=== PATIENT | male | born 1970 | race African-American/Black ===

== ENCOUNTER 2020-01-29 12:16 | Inpatient (IN) | payer BC ==
--- NOTE | 2020-01-29 12:31 | BHS.RME ---
Substance Use & Tx History - Substance Use History Alcohol Substance amount: 1 pint vodka + six pack beers Frequency of use: Daily Substance route: Oral Date of Last Use: 01/29/20 Cocaine- Powder Substance amount: $10 Frequency of use: Less than 3 times per week Substance route: Inhalation (ex: sniffing or snorting) Date of Last Use: 01/24/20 Marijuana/Hashish Substance amount: $5 Frequency of use: Daily Substance route: Smoking Date of Last Use: 01/29/20 Nicotine Substance amount: 1/2 pack Frequency of use: Daily Substance route: Smoking Date of Last Use: 01/29/20 Physical/Psych/Mental Status - Behavior General Behavior: Increased activity (restlessness, agitation) Eye Contact: Normal - Cooperativeness Cooperativeness: Cooperative - Thinking Thought Processes: Tight, Logical, Goal Directed Thought content: Future oriented - Physical Health Problems Is patient presently having any pain?: No Does patient presently have any injuries (include location): No Does patient currently have a fever: No Is patient : No CIWA Nausea/Vomitin-Mild Nausea/No Vomiting Muscle Tremors: 4-Moderate,w/Arms Extend Anxiety: 2 Agitation: 1-Slight > Activity Paroxysmal Sweats: 1-Minimal Palms Moist Orientation: 0-Oriented Tacttile Disturbances: 0-None Auditory Disturbances: 0-None Visual Disturbances: 0-None Headache: 0-None Present (still not in full withdrawals due to drink earlier this morning at 6AM) CIWA-Ar Total Score: 9
[2020-01-29 13:05] VITALS: BMI 19.7
--- NOTE | 2020-01-29 13:32 | HP ---
CIWA Score Nausea/Vomitin-Mild Nausea/No Vomiting Muscle Tremors: 4-Moderate,w/Arms Extend Anxiety: 2 Agitation: 1-Slight > Activity Paroxysmal Sweats: 1-Minimal Palms Moist Orientation: 0-Oriented Tacttile Disturbances: 0-None Auditory Disturbances: 0-None Visual Disturbances: 0-None Headache: 0-None Present (still not in full withdrawals due to drink earlier this morning at 6AM) CIWA-Ar Total Score: 9 - Admission Criteria [facility] Guidelines: Admission for Medically Managed Detox: Requires at least one of the followin. CIWA greater than 12 2. Seizures within the past 24 hours 3. Delirium tremens within the past 24 hours 4. Hallucinations within the past 24 hours 5. Acute intervention needed for co occurring medical disorder 6. Acute intervention needed for co occurring psychiatric disorder 7. Severe withdrawal that cannot be handled at a lower level of care (continued vomiting, continued diarrhea, abnormal vital signs) requiring intravenous medication and/or fluids 8. Admitting History and Physical - Admission Chief Complaint: Alcohol detox History of Present Illness: CC: Alcohol detox HPI: Jayson is a 49 year old man with PMH of HIV currently on anti-retrovirals, polysubstance abuse (alcohol, cocaine, marijuana, nicotine), who presents for alcohol detox. He states this is his second time attempting detox; the first time was at [facility] several years ago. He is a poor historian, but reports that his longest period of sobriety is 6 months. CIWA 9 BUT patient meets criteria for comorbid medical condition/homeless. - Substance Use History Alcohol Substance amount: 1 pint vodka + six pack beers Frequency of use: Daily Substance route: Oral Date of Last Use: 01/29/20 Daily eyeopener Cocaine- Powder Substance amount: $10 Frequency of use: Less than 3 times per week Substance route: Inhalation (ex: sniffing or snorting) Date of Last Use: 01/24/20 Marijuana/Hashish Substance amount: $5 Frequency of use: Daily Substance route: Smoking Date of Last Use: 01/29/20 Nicotine Substance amount: 1/2 pack Frequency of use: Daily Substance route: Smoking Date of Last Use: 01/29/20 PMH: HIV positive, diagnosed 1998 PSH: None Psych: None Social: Homeless, lives in [place]f in the [place] Legal: None History Source: Patient Limitations to Obtaining History: No Limitations - Smoking History Smoking history: Current every day smoker Have you smoked in the past 12 months: Yes Aproximately how many cigarettes per day: 10 - Alcohol/Substance Use Hx Alcohol Use: Yes History of Substance Use: reports: Cocaine, Marijuana - Social History Usual Living Arrangement: Yes: Alone, Other (homeless) Admission ROS [facility] Chief Complaint: alcohol detox Allergies/Adverse Reactions: Allergies Allergy/AdvReac Type Severity Reaction Status Date / Time No Known Allergies Allergy Verified 01/29/20 13:13 Exam Limitations: No Limitations - Ebola screening Have you traveled outside of the country in the last 21 days: No Have you had contact with anyone from an Ebola affected area: No Have you been sick,other than usual withdrawal symptoms: No Do you have a fever: No - Review of Systems Constitutional: Unintentional Wgt. Loss EENT: denies: Eye Pain, Ear Pain, Nose Congestion Respiratory: denies: Cough, Shortness of Breath Cardiac: denies: Chest Pain, Edema GI: denies: Constipated, Diarrhea, Nausea, Vomiting : reports: No Symptoms Reported Musculoskeletal: reports: No Symptoms Reported Integumentary: reports: No Symptoms Reported. denies: Rash Neuro: reports: No Symptoms reported. denies: Headache Endocrine: reports: No Symptoms Reported Hematology: denies: Blood Clots Psychiatric: reports: Orientated x3 Patient History - Patient Medical History Hx Asthma: No Hx Chronic Obstructive Pulmonary Disease (COPD): No Hx Cardiac Disorders: No Hx Hypertension: No Hx Seizures: No Hx Diabetes: No Hx Gastrointestinal Disorders: No Hx Genitourinary Disorders: No Hx Sexually Transmitted Disorders: Yes (HIV + since 1998) Hx Renal Disease (ESRD): No Hx Depression: No Hx Suicide Attempt: No Hx Schizophrenia: No - Patient Surgical History Past Surgical History: No Hx Neurologic Surgery: No Hx Cataract Extraction: No Hx Cardiac Surgery: No Hx Lung Surgery: No Hx Breast Surgery: No Hx Breast Biopsy: No Hx Abdominal Surgery: No Hx Appendectomy: No Hx Cholecystectomy: No Hx Genitourinary Surgery: No Hx Orthopedic Surgery: No Anesthesia Reaction: No - PPD History Previous Implant?: No Documented Results: Negative w/o proof - Smoking Cessation Smoking history: Current every day smoker Have you smoked in the past 12 months: Yes Aproximately how many cigarettes per day: 10 Hx Chewing Tobacco Use: No Initiated information on smoking cessation: No - Substances abused Alcohol Substance route: Oral Frequency: Daily Amount used: 1 (6) pack of beer and 1 pint Vodka Age of first use: 20 Date of last use: 01/29/20 Marijuana/Hashish Substance route: Smoking Frequency: Daily Amount used: $5 Age of first use: 20 Date of last use: 01/29/20 Cocaine Substance route: Inhalation Frequency: 3-6 times per week Amount used: $10 Age of first use: 20 Date of last use: 01/22/20 Admission Physical Exam [facility] - Vital Signs Vital Signs: Vital Signs - 24 hr 01/29/20 12:57 Temperature 97.6 F Pulse Rate 68 Respiratory 19 Rate Blood Pressure 157/85 - Physical General Appearance: Yes: Disheveled, Thin HEENTM: Yes: Within Normal Limits, Hearing grossly Normal, Normocephalic Respiratory: Yes: Within Normal Limits, Lungs Clear, No Respiratory Distress, No Accessory Muscle Use Neck: Yes: Within Normal Limits Breast: Yes: Breast Exam Deferred Cardiology: Yes: Regular Rhythm, Regular Rate, S1, S2 Abdominal: Yes: Within Normal Limits, Flat, Soft, Other (mild tenderness to palpation at RUQ) Genitourinary: Yes: Within Normal Limits Back: Yes: Within Normal Limits Musculoskeletal: Yes: full range of Motion, Gait Steady Extremities: Yes: Within Normal Limits, Normal Capillary Refill, Normal Inspection. No: Tremors, Coldness, Cyanosis Neurological: Yes: Within Normal Limits, Alert, Normal Mood/Affect, Normal Response Integumentary: Yes: Within Normal Limits, Normal Color, Dry, Warm - Diagnostic (1) Alcohol withdrawal Current Visit: Yes Status: Acute Qualifiers: Complication of substance-induced condition: uncomplicated Qualified Code(s): F10.230 - Alcohol dependence with withdrawal, uncomplicated (2) Cocaine use disorder Current Visit: Yes Status: Acute (3) Marijuana smoker Current Visit: Yes Status: Chronic (4) Nicotine dependence Current Visit: Yes Status: Chronic (5) HIV positive Current Visit: Yes Status: Chronic Cleared for Admission [facility] - Detox or Rehab [facility] Level of Care: Medically Managed Screened but not Admitted - Documentation of Visit Screened but not Admitted: No Breathalyzer - Breathalyzer Breathalyzer: 0.061 Urine Drug Screen - Test Device Lot number: [id number] Expiration date: 01/13/22 - Control Is test valid?: Yes - Results Drug screen NEGATIVE: No Urine drug screen results: THC-Marijuana, LEONA-Cocaine, MET-Methamphetamine, AMP- Amphetamines Inpatient Rehab Admission - Rehab Decision to Admit Inpatient rehab admission?: No
[2020-01-29] MEDS ORDERED: ACETAMINOPHEN 325 MG TABLET (FP) PO PRN ×2 (13:47)
[2020-01-29] MEDS ORDERED: BISMUTH SUBSALICYLATE 524 MG/30 ML UD PO PRN (13:47)
[2020-01-29] MEDS ORDERED: MAGNESIUM CITRATE 300 ML BOTTLE PO PRN (13:47)
[2020-01-29] MEDS ORDERED: MAG HYDROX/AL HYDROX/SIMETH 30 ML UNIT-DOSE CUP PO PRN (13:47)
[2020-01-29] MEDS ORDERED: chlordiazePOXIDE HCL 25 MG CAPSULE PO PRN ×2 (13:47→14:10)
[2020-01-29] MEDS ORDERED: MAGNESIUM HYDROX 2400MG/30ML ORAL SUSPENSION 30 ML CUP PO PRN (13:47)
[2020-01-29] MEDS ORDERED: MENTHOL/PHENOL 1 EACH UD MM PRN (13:47)
[2020-01-29] MEDS ORDERED: METHOCARBAMOL 500 MG TABLET PO PRN (13:47)
[2020-01-29] MEDS ORDERED: NICOTINE POLACRILEX 2 MG GUM BUC PRN (13:47)
[2020-01-29] MEDS ORDERED: chlordiazePOXIDE HCL 25 MG CAPSULE PO ONE (14:15)
[2020-01-29] MEDS ORDERED: ONDANSETRON *ODT* 4 MG TABLET SL ONE (14:30)
[2020-01-29] MEDS: NICOTINE 14 MG/24 HOURS TOPICAL PATCH TD SCH (14:51)
--- NOTE | 2020-01-29 14:52 | EKG ---
Test Reason : Blood Pressure : / mmHG Vent. Rate : 062 BPM Atrial Rate : 062 BPM P-R Int : 142 ms QRS Dur : 086 ms QT Int : 468 ms P-R-T Axes : 066 043 056 degrees QTc Int : 475 ms NORMAL SINUS RHYTHM VOLTAGE CRITERIA FOR LEFT VENTRICULAR HYPERTROPHY NONSPECIFIC T WAVE ABNORMALITY PROLONGED QT ABNORMAL ECG NO PREVIOUS ECGS AVAILABLE Confirmed by Sebas Ochoa MD ([id number]) on 01/29/2020 2:51:58 PM Referred By: Confirmed By:Sebas Ochoa MD
[2020-01-29] MEDS ORDERED: chlordiazePOXIDE HCL 25 MG CAPSULE PO SCH (17:00)
[2020-01-29 18:00] LABS: HEMATOCRIT 36.5 % (35.4-49); HEMOGLOBIN 12.5 GM/dL (11.7-16.9); MCH 37.2 pg (25.7-33.7); MCHC 34.3 g/dl (32.0-35.9); MEAN CELL VOLUME 108.4 fl (80-96); MEAN PLT VOLUME 9.6 fl (7.5-11.1); PLATELET COUNT 89 K/MM3 (134-434); RBC 3.37 M/mm3 (4.00-5.60); RDW 14.1 % (11.9-15.9); WHITE BLOOD COUNT 3.5 K/mm3 (4.0-10.0)
[2020-01-29 18:04] LABS: ALBUMIN 4.1 g/dl (3.4-5.0); BILIRUBIN,TOTAL 1.7 mg/dL (0.2-1); BLOOD UREA NITROGEN 10.7 mg/dL (7-18); CALCIUM 8.6 mg/dL (8.5-10.1); CREATININE 1.1 mg/dL (0.55-1.3); POTASSIUM 4.2 mmol/L (3.5-5.1); TOT PROT 8.1 g/dl (6.4-8.2)
[2020-01-29] MEDS: chlordiazePOXIDE HCL 25 MG CAPSULE PO SCH ×2 (18:52→22:29)
[2020-01-29] MEDS: MELATONIN 5 MG TABLETS PO SCH (22:29)
[2020-01-29] MEDS: THIAMINE HCL 100 MG TABLET (FP) PO SCH (22:29)
[2020-01-30] MEDS: chlordiazePOXIDE HCL 25 MG CAPSULE PO SCH (05:30)
[2020-01-30] MEDS ORDERED: PATIENT'S OWN MEDICATION (NON-FORMULARY) (Darunavir/Cob/Emtri/Tenof Alaf 1 EACH) PO SCH (10:00)
--- NOTE | 2020-01-30 10:22 | CONSULT ---
[facility] Psychiatric Consult - Data Date of interview: 01/30/20 Admission source: [facility] Identifying data: Patient is a 49 year old single black male, father of four, unemployed, domiciled, and is supported with public assistance. This is patient's first admisson to detox at [facility]. Patient admitted to for alcohol dependence. Substance Abuse History: Smoking Cessation. Smoking history: Current every day smoker. Have you smoked in the past 12 months: Yes. Aproximately how many cigarettes per day: 10. Hx Chewing Tobacco Use: No. Initiated information on smoking cessation: No. - Substances abused. Alcohol. Substance route: Oral. Frequency: Daily. Amount used: 1 (6) pack of beer and 1 pint Vodka. Age of first use: 20. Date of last use: 01/29/20. Marijuana/Hashish. Substance route: Smoking. Frequency: Daily. Amount used: $5. Age of first use: 20. Date of last use: 01/29/20. Cocaine. Substance route: Inhalation. Frequency: 3-6 times per week. Amount used: $10. Age of first use: 20. Date of last use: 01/22/20 Medical History: HIV+ Psychiatric History: Patient denies history of psychiatric hospitalization, outpatient psychiatric care, and suicide attempt. Physical/Sexual Abuse/Trauma History: denies. Mental Status Exam - Mental Status Exam Alert and Oriented to: Time, Place, Person Cognitive Function: Good Patient Appearance: Well Groomed Mood: Hopeful Affect: Mood Congruent Patient Behavior: Appropriate, Cooperative Speech Pattern: Appropriate Voice Loudness: Normal Thought Process: Goal Oriented Hallucinations: Denies Suicidal Ideation: Denies Homicidal Ideation: Denies Insight/Judgement: Poor Sleep: Poorly Appetite: Fair Muscle strength/Tone: Normal Gait/Station: Normal Psychiatric Findings - Problem List ([place] 1, 2,3) (1) Substance-induced sleep disorder Current Visit: Yes Status: Acute (2) Alcohol withdrawal Current Visit: Yes Status: Acute Qualifiers: Complication of substance-induced condition: uncomplicated Qualified Code(s): F10.230 - Alcohol dependence with withdrawal, uncomplicated (3) Cocaine use disorder Current Visit: Yes Status: Acute (4) Marijuana smoker Current Visit: Yes Status: Chronic (5) Nicotine dependence Current Visit: Yes Status: Chronic - Initial Treatment Plan Initial Treatment Plan: Psychoeducation provided. Detoxification in progress. Will order Belsomra 10mg HS PRN. Benefits and side effects discussed. Verbal consent given.
--- NOTE | 2020-01-30 10:24 | PN ---
S CIWA - CIWA Score Nausea/Vomitin-Mild Nausea/No Vomiting Muscle Tremors: 2 Anxiety: 4-Mod. Anxious/Guarded Agitation: 2 Paroxysmal Sweats: No Perspiration Orientation: 0-Oriented Tacttile Disturbances: 1-Very Mild Itch/Numbness Auditory Disturbances: 0-None Visual Disturbances: 2-Mild Sensitivity Headache: 0-None Present CIWA-Ar Total Score: 12 BHS Progress Note (SOAP) Subjective: 49 years old male was admitted on 01/29/20 for alcohol withdrawal sx management treating with librium detox regiment bmi 19.7 ensure 120 ml po tid with meals feels tired prefers to resting in bed limited conversation with staff Objective: 01/30/20 10:26 Vital Signs - 24 hr 01/29/20 01/29/20 01/29/20 12:57 14:35 16:49 Temperature 97.6 F 96.9 F L 97.5 F L Pulse Rate 68 62 61 Respiratory 19 19 18 Rate Blood Pressure 157/85 156/88 141/76 O2 Sat by Pulse 98 98 Oximetry (%) 01/29/20 01/30/20 01/30/20 20:51 06:35 08:50 Temperature 97.5 F L 97.1 F L 97.1 F L Pulse Rate 76 60 63 Respiratory 18 18 20 Rate Blood Pressure 133/74 148/76 108/71 O2 Sat by Pulse 96 98 Oximetry (%) Laboratory Tests 01/29/20 01/29/20 01/29/20 13:00 13:00 13:00 WBC 3.5 L RBC 3.37 L Hgb 12.5 Hct 36.5 MCV 108.4 H MCH 37.2 H MCHC 34.3 RDW 14.1 Plt Count 89 L MPV 9.6 Sodium 139 Potassium 4.2 Chloride 106 Carbon Dioxide 23 Anion Gap 11 BUN 10.7 Creatinine 1.1 Est GFR (CKD-EPI)AfAm 90.24 Est GFR (CKD-EPI)NonAf 77.86 Random Glucose 79 Calcium 8.6 Total Bilirubin 1.7 H AST 110 H ALT 45 Alkaline Phosphatase 97 Total Protein 8.1 Albumin 4.1 Syphilis Serology Non-reactive COVID-19 ([facility]) 01/29/20 14:50 WBC RBC Hgb Hct MCV MCH MCHC RDW Plt Count MPV Sodium Potassium Chloride Carbon Dioxide Anion Gap BUN Creatinine Est GFR (CKD-EPI)AfAm Est GFR (CKD-EPI)NonAf Random Glucose Calcium Total Bilirubin AST ALT Alkaline Phosphatase Total Protein Albumin Syphilis Serology COVID-19 ([facility]) Not detected ast elevation discontinue tylenal discontinue librium begin ativan for alcohol withdrawal 01/30/20 10:30 Assessment: 01/30/20 10:30 alcohol withdrawal Plan: ativan regiment
[2020-01-30] MEDS: DARUNAVIR/COB/EMTRI/TENOF (SYMTUZA) TABLET (NF) PO SCH (10:30)
[2020-01-30] MEDS: PRENATAL VITAMINS W/ FOLIC ACID TABLET (FP) PO SCH (10:30)
[2020-01-30] MEDS: NICOTINE 14 MG/24 HOURS TOPICAL PATCH TD SCH (10:30)
[2020-01-30] MEDS: LORazepam 1 MG TABLET PO PRN (11:02)
[2020-01-30] MEDS: LORazepam 2 MG TABLET PO SCH ×2 (17:44→22:23)
[2020-01-30] MEDS: THIAMINE HCL 100 MG TABLET (FP) PO SCH (22:23)
[2020-01-30] MEDS: MELATONIN 5 MG TABLETS PO SCH (22:23)
[2020-01-30] MEDS: SUVOREXANT 10 MG TABLET PO PRN (22:25)
[2020-01-31] MEDS ORDERED: chlordiazePOXIDE HCL 25 MG CAPSULE PO SCH ×2 (05:00)
[2020-01-31] MEDS: LORazepam 2 MG TABLET PO SCH ×4 (05:36→22:15)
[2020-01-31] MEDS: DARUNAVIR/COB/EMTRI/TENOF (SYMTUZA) TABLET (NF) PO SCH (11:02)
[2020-01-31] MEDS: PRENATAL VITAMINS W/ FOLIC ACID TABLET (FP) PO SCH (11:02)
[2020-01-31] MEDS: NICOTINE 14 MG/24 HOURS TOPICAL PATCH TD SCH (11:02)
[2020-01-31] MEDS: IBUPROFEN 400 MG TABLET (FP) PO PRN ×2 (11:05→17:07)
--- NOTE | 2020-01-31 14:04 | PN ---
S CIWA - CIWA Score Nausea/Vomitin-Mild Nausea/No Vomiting Muscle Tremors: 2 Anxiety: 2 Agitation: 2 Paroxysmal Sweats: No Perspiration Orientation: 0-Oriented Tacttile Disturbances: 1-Very Mild Itch/Numbness Auditory Disturbances: 0-None Visual Disturbances: 0-None Headache: 1-Very Mild CIWA-Ar Total Score: 9 S Progress Note (SOAP) Subjective: alert,irritable,anxious,interrupted sleep,tremor,aching pain body Objective: 01/31/20 16:27 Laboratory Last Values WBC 3.5 K/mm3 (4.0-10.0) L 01/29/20 13:00 RBC 3.37 M/mm3 (4.00-5.60) L 01/29/20 13:00 Hgb 12.5 GM/dL (11.7-16.9) 01/29/20 13:00 Hct 36.5 % (35.4-49) 01/29/20 13:00 MCV 108.4 fl (80-96) H 01/29/20 13:00 MCH 37.2 pg (25.7-33.7) H 01/29/20 13:00 MCHC 34.3 g/dl (32.0-35.9) 01/29/20 13:00 RDW 14.1 % (11.9-15.9) 01/29/20 13:00 Plt Count 89 K/MM3 (134-434) L 01/29/20 13:00 MPV 9.6 fl (7.5-11.1) 01/29/20 13:00 Sodium 139 mmol/L (136-145) 01/29/20 13:00 Potassium 4.2 mmol/L (3.5-5.1) 01/29/20 13:00 Chloride 106 mmol/L (98-107) 01/29/20 13:00 Carbon Dioxide 23 mmol/L (21-32) 01/29/20 13:00 Anion Gap 11 MMOL/L (8-16) 01/29/20 13:00 BUN 10.7 mg/dL (7-18) 01/29/20 13:00 Creatinine 1.1 mg/dL (0.55-1.3) 01/29/20 13:00 Est GFR (CKD-EPI)AfAm 90.24 01/29/20 13:00 Est GFR (CKD-EPI)NonAf 77.86 01/29/20 13:00 Random Glucose 79 mg/dL (74-106) 01/29/20 13:00 Calcium 8.6 mg/dL (8.5-10.1) 01/29/20 13:00 Total Bilirubin 1.7 mg/dL (0.2-1) H 01/29/20 13:00 AST 110 U/L (15-37) H 01/29/20 13:00 ALT 45 U/L (13-61) 01/29/20 13:00 Alkaline Phosphatase 97 U/L (45-117) 01/29/20 13:00 Total Protein 8.1 g/dl (6.4-8.2) 01/29/20 13:00 Albumin 4.1 g/dl (3.4-5.0) 01/29/20 13:00 Syphilis Serology Non-reactive (NONREACTIVE) 01/29/20 13:00 COVID-19 ([facility]) Not detected (Not Detected) 01/29/20 14:50 Assessment: 01/31/20 16:28 withdrawal symptom Plan: continue detox ativan regimen,fluid
[2020-01-31] MEDS: THIAMINE HCL 100 MG TABLET (FP) PO SCH (22:15)
[2020-01-31] MEDS: MELATONIN 5 MG TABLETS PO SCH (22:15)
[2020-01-31] MEDS: SUVOREXANT 10 MG TABLET PO PRN (22:16)
[2020-02-01] MEDS ORDERED: chlordiazePOXIDE HCL 10 MG CAPSULE PO PRN ×2
[2020-02-01] MEDS: LORazepam 1 MG TABLET PO PRN (03:14)
[2020-02-01] MEDS ORDERED: LORazepam 0.5 MG TABLET ONE ×4 (04:31→21:08)
[2020-02-01] MEDS ORDERED: chlordiazePOXIDE HCL 10 MG CAPSULE PO SCH ×2 (05:00)
[2020-02-01] MEDS: LORazepam 1 MG TABLET PO SCH ×4 (05:54→22:25)
[2020-02-01] MEDS: IBUPROFEN 400 MG TABLET (FP) PO PRN (05:58)
--- NOTE | 2020-02-01 10:07 | PN ---
S CIWA - CIWA Score Nausea/Vomitin-No Nausea/No Vomiting Muscle Tremors: None Anxiety: 3 Agitation: 1-Slight > Activity Paroxysmal Sweats: 3 Orientation: 0-Oriented Tacttile Disturbances: 0-None Auditory Disturbances: 0-None Visual Disturbances: 0-None Headache: 1-Very Mild CIWA-Ar Total Score: 8 BHS Progress Note (SOAP) Subjective: c/o anxiety, sweats, headache, and irritability. Objective: 02/01/20 10:06 Vital Signs 02/01/20 02/01/20 06:37 09:57 Temperature 97.2 F L 98.0 F Pulse Rate 60 68 Respiratory 16 18 Rate Blood Pressure 133/79 123/82 O2 Sat by Pulse 99 98 Oximetry (%) Assessment: 02/01/20 10:06 AOX3, in no acute respiratory distress. Full ROM, ambulating in the unit. Withdrawal symptoms. Plan: continue detox.
[2020-02-01] MEDS: DARUNAVIR/COB/EMTRI/TENOF (SYMTUZA) TABLET (NF) PO SCH (10:58)
[2020-02-01] MEDS: PRENATAL VITAMINS W/ FOLIC ACID TABLET (FP) PO SCH (10:59)
[2020-02-01] MEDS: NICOTINE 14 MG/24 HOURS TOPICAL PATCH TD SCH (10:59)
[2020-02-01] MEDS: MELATONIN 5 MG TABLETS PO SCH (22:25)
[2020-02-01] MEDS: THIAMINE HCL 100 MG TABLET (FP) PO SCH (22:25)
[2020-02-01] MEDS: SUVOREXANT 10 MG TABLET PO PRN (22:25)
[2020-02-02] MEDS ORDERED: LORazepam 0.5 MG TABLET PO PRN
[2020-02-02] MEDS: LORazepam 0.5 MG TABLET PO SCH ×4 (04:50→22:27)
[2020-02-02] MEDS: IBUPROFEN 400 MG TABLET (FP) PO PRN (04:50)
[2020-02-02] MEDS ORDERED: chlordiazePOXIDE HCL 10 MG CAPSULE PO SCH ×2 (05:00)
[2020-02-02] MEDS: DARUNAVIR/COB/EMTRI/TENOF (SYMTUZA) TABLET (NF) PO SCH (10:23)
[2020-02-02] MEDS: PRENATAL VITAMINS W/ FOLIC ACID TABLET (FP) PO SCH (10:23)
[2020-02-02] MEDS: NICOTINE 14 MG/24 HOURS TOPICAL PATCH TD SCH (10:43)
--- NOTE | 2020-02-02 10:54 | PN ---
S CIWA - CIWA Score Nausea/Vomitin-No Nausea/No Vomiting Muscle Tremors: 2 Anxiety: 1-Mildly Anxious Agitation: 1-Slight > Activity Paroxysmal Sweats: 1-Minimal Palms Moist Orientation: 0-Oriented Tacttile Disturbances: 0-None Auditory Disturbances: 0-None Visual Disturbances: 1-Very Mild Sensitivity Headache: 0-None Present CIWA-Ar Total Score: 6 BHS Progress Note (SOAP) Subjective: 49 years old male was admitted on 01/29/20 for alcohol withdrawal sx management treating with ativan detox regiment feels better today discussing aftercare with staff mr suarez agrees to go to [facility] for alcohol abuse treatment Objective: 02/02/20 10:55 Vital Signs - 24 hr 02/01/20 02/01/20 02/01/20 14:25 16:44 20:44 Temperature 97.8 F 97.1 F L 97.1 F L Pulse Rate 52 L 64 67 Respiratory 17 18 18 Rate Blood Pressure 100/66 147/86 146/95 O2 Sat by Pulse 99 99 Oximetry (%) 02/02/20 02/02/20 04:45 08:46 Temperature 97.3 F L 97.3 F L Pulse Rate 60 66 Respiratory 16 18 Rate Blood Pressure 144/88 130/80 O2 Sat by Pulse 100 Oximetry (%) Laboratory Tests 01/29/20 01/29/20 01/29/20 13:00 13:00 13:00 WBC 3.5 L RBC 3.37 L Hgb 12.5 Hct 36.5 MCV 108.4 H MCH 37.2 H MCHC 34.3 RDW 14.1 Plt Count 89 L MPV 9.6 Sodium 139 Potassium 4.2 Chloride 106 Carbon Dioxide 23 Anion Gap 11 BUN 10.7 Creatinine 1.1 Est GFR (CKD-EPI)AfAm 90.24 Est GFR (CKD-EPI)NonAf 77.86 Random Glucose 79 Calcium 8.6 Total Bilirubin 1.7 H AST 110 H ALT 45 Alkaline Phosphatase 97 Total Protein 8.1 Albumin 4.1 Syphilis Serology Non-reactive COVID-19 ([place]) 01/29/20 14:50 WBC RBC Hgb Hct MCV MCH MCHC RDW Plt Count MPV Sodium Potassium Chloride Carbon Dioxide Anion Gap BUN Creatinine Est GFR (CKD-EPI)AfAm Est GFR (CKD-EPI)NonAf Random Glucose Calcium Total Bilirubin AST ALT Alkaline Phosphatase Total Protein Albumin Syphilis Serology COVID-19 ([place]) Not detected 02/02/20 10:55 lab noted Assessment: 02/02/20 10:55 alcohol withdrawal Plan: ativan regiment
[2020-02-02] MEDS ORDERED: SUVOREXANT 10 MG TABLET PO PRN (22:00)
[2020-02-02] MEDS: THIAMINE HCL 100 MG TABLET (FP) PO SCH (22:27)
[2020-02-02] MEDS: MELATONIN 5 MG TABLETS PO SCH (22:27)
[2020-02-02 23:25] VITALS: TEMP 97.1
[2020-02-03] MEDS ORDERED: chlordiazePOXIDE HCL 10 MG CAPSULE PO ONE ×2 (05:00)
[2020-02-03] MEDS ORDERED: LORazepam 0.5 MG TABLET PO ONE (05:00)
[2020-02-03 06:46] VITALS: BP 131/84; PULSE 58
--- NOTE | 2020-02-03 09:15 | DS ---
[facility] Detox Discharge Summary Admission Date: 01/29/20 Discharge Date: 02/03/20 - History Present History: Alcohol Dependence Additional Comments: 49 years old male was admitted on 01/29/20 for alcohol withdrawal sx management treated with ativan detox regiment seen by psychiatrist era castillo mr suarez has completed the ativan regiment and is tolerated well General Appearance: Yes: good hygiene, Thin HEENTM: Yes: Within Normal Limits, Hearing grossly Normal, Normocephalic Respiratory: Yes: Within Normal Limits, Lungs Clear, No Respiratory Distress, No Accessory Muscle Use Neck: Yes: Within Normal Limits Breast: Yes: Breast Exam Deferred Cardiology: Yes: Regular Rhythm, Regular Rate, S1, S2 Abdominal: Yes: Within Normal Limits, Flat, Soft, Other (mild tenderness to palpation at RUQ) Genitourinary: Yes: Within Normal Limits Back: Yes: Within Normal Limits Musculoskeletal: Yes: full range of Motion, Gait Steady Extremities: Yes: Within Normal Limits, Normal Capillary Refill, Normal Inspection. No: Tremors, Coldness, Cyanosis Neurological: Yes: Within Normal Limits, Alert, Normal Mood/Affect, Normal Response Integumentary: Yes: Within Normal Limits, Normal Color, Dry, Warm Pertinent Past History: time for discharge 35 minutes - Physical Exam Results Vital Signs: Vital Signs Temperature 97.1 F L 02/03/20 05:29 Pulse Rate 58 L 02/03/20 05:29 Respiratory Rate 20 02/03/20 05:29 Blood Pressure 131/84 02/03/20 05:29 O2 Sat by Pulse Oximetry (%) 100 02/03/20 05:29 Pertinent Admission Physical Exam Findings: alcohol withdrawal Vital Signs - 24 hr 02/02/20 02/02/20 02/02/20 12:50 16:27 20:16 Temperature 97.5 F L 96.9 F L 97.1 F L Pulse Rate 81 62 61 Respiratory 18 18 18 Rate Blood Pressure 120/69 142/92 139/82 O2 Sat by Pulse 95 97 Oximetry (%) 02/03/20 05:29 Temperature 97.1 F L Pulse Rate 58 L Respiratory 20 Rate Blood Pressure 131/84 O2 Sat by Pulse 100 Oximetry (%) Laboratory Tests 01/29/20 01/29/20 01/29/20 13:00 13:00 13:00 WBC 3.5 L RBC 3.37 L Hgb 12.5 Hct 36.5 MCV 108.4 H MCH 37.2 H MCHC 34.3 RDW 14.1 Plt Count 89 L MPV 9.6 Sodium 139 Potassium 4.2 Chloride 106 Carbon Dioxide 23 Anion Gap 11 BUN 10.7 Creatinine 1.1 Est GFR (CKD-EPI)AfAm 90.24 Est GFR (CKD-EPI)NonAf 77.86 Random Glucose 79 Calcium 8.6 Total Bilirubin 1.7 H AST 110 H ALT 45 Alkaline Phosphatase 97 Total Protein 8.1 Albumin 4.1 Syphilis Serology Non-reactive COVID-19 ([facility]) 01/29/20 14:50 WBC RBC Hgb Hct MCV MCH MCHC RDW Plt Count MPV Sodium Potassium Chloride Carbon Dioxide Anion Gap BUN Creatinine Est GFR (CKD-EPI)AfAm Est GFR (CKD-EPI)NonAf Random Glucose Calcium Total Bilirubin AST ALT Alkaline Phosphatase Total Protein Albumin Syphilis Serology COVID-19 ([place]) Not detected lab noted - Treatment Hospital Course: Detox Protocol Followed, Detoxed Safely, Responded well, Discharged Condition Good, Rehab Referral Accepted Patient has Accepted a Rehab Referral to: [facility] - Medication Discharge Medications: Ambulatory Orders Darunavir/Cob/Emtri/Tenof Alaf [Symtuza [phone] mg Tab] 1 each PO DAILY 01/29/20 - Diagnosis (1) Substance induced mood disorder Status: Suspected (2) Alcohol withdrawal Status: Acute Qualifiers: Complication of substance-induced condition: uncomplicated Qualified Code(s): F10.230 - Alcohol dependence with withdrawal, uncomplicated (3) HIV positive Status: Chronic (4) Nicotine dependence Status: Acute Qualifiers: Nicotine product type: cigarettes Substance use status: in withdrawal Qualified Code(s): F17.213 - Nicotine dependence, cigarettes, with withdrawal - AMA Did Patient Leave Against Medical Advice: No CIWA Score - CIWA Score Nausea/Vomitin-No Nausea/No Vomiting Muscle Tremors: 2 Anxiety: 1-Mildly Anxious Agitation: 0-Normal Activity Paroxysmal Sweats: No Perspiration Orientation: 0-Oriented Tacttile Disturbances: 0-None Auditory Disturbances: 0-None Visual Disturbances: 0-None Headache: 0-None Present CIWA-Ar Total Score: 3
== END 2020-02-03 09:20 | disposition home or self-care (01) | DRG 774 ==
LOC: YASAS 12:16 → Y3N 13:15
PROVIDERS: ADMIT Allergy & Immunology; ATTEND Allergy & Immunology
PROC: HZ2ZZZZ Detoxification Services for Substance Abuse Treatment (ICD-10-PCS; principal; 2020-01-29)
DX: F10.230 Alcohol dependence with withdrawal, uncomplicated (principal); F14.10 Cocaine abuse, uncomplicated; F12.20 Cannabis dependence, uncomplicated; F17.210 Nicotine dependence, cigarettes, uncomplicated; F19.282 Other psychoactive substance dependence with psychoactive substance-induced sleep disorder; F19.24 Other psychoactive substance dependence with psychoactive substance-induced mood disorder; Z21 Asymptomatic human immunodeficiency virus [HIV] infection status; Z56.0 Unemployment, unspecified; Z59.0 Homelessness
CPT/HCPCS: 36415; 80053; 85027; 86780; 93005; 93010; U0003

== ENCOUNTER 2020-05-20 12:01 | Inpatient (IN) | payer BC ==
[2020-05-20 13:39] VITALS: BMI 21.2
[2020-05-20] MEDS ORDERED: BISMUTH SUBSALICYLATE 262 MG/15 ML BTL PO PRN (14:44)
[2020-05-20] MEDS ORDERED: IBUPROFEN 400 MG TABLET (FP) PO PRN (14:44)
[2020-05-20] MEDS ORDERED: MAGNESIUM CITRATE 300 ML BOTTLE PO PRN (14:44)
[2020-05-20] MEDS ORDERED: MAG HYDROX/AL HYDROX/SIMETH 30 ML UNIT-DOSE CUP PO PRN (14:44)
[2020-05-20] MEDS ORDERED: ACETAMINOPHEN 325 MG TABLET (FP) PO PRN ×2 (14:44)
[2020-05-20] MEDS ORDERED: ONDANSETRON *ODT* 4 MG TABLET SL PRN (14:44)
[2020-05-20] MEDS ORDERED: MENTHOL/PHENOL 1 EACH UD MM PRN (14:44)
[2020-05-20] MEDS ORDERED: MAGNESIUM HYDROX 2400MG/30ML ORAL SUSPENSION 30 ML CUP PO PRN (14:44)
[2020-05-20] MEDS ORDERED: NICOTINE POLACRILEX 2 MG GUM BUC PRN (14:44)
[2020-05-20] MEDS ORDERED: LORazepam 1 MG TABLET PO PRN (14:44)
[2020-05-20] MEDS: METHOCARBAMOL 500 MG TABLET PO PRN (15:16)
[2020-05-20] MEDS: NICOTINE 14 MG/24 HOURS TOPICAL PATCH TD SCH (15:17)
[2020-05-20] MEDS: LORazepam 2 MG TABLET PO SCH ×2 (17:39→22:11)
[2020-05-20] MEDS: hydrOXYzine PAMOATE 25 MG CAPSULE (FP) PO SCH ×2 (17:40→22:11)
[2020-05-20 18:03] LABS: HEMATOCRIT 39.9 % (35.4-49); HEMOGLOBIN 13.5 GM/dL (11.7-16.9); MCH 35.8 pg (25.7-33.7); MCHC 33.8 g/dl (32.0-35.9); MEAN CELL VOLUME 105.9 fl (80-96); MEAN PLT VOLUME 9.1 fl (7.5-11.1); PLATELET COUNT 171 K/MM3 (134-434); RBC 3.76 M/mm3 (4.00-5.60); RDW 15.4 % (11.9-15.9); WHITE BLOOD COUNT 5.1 K/mm3 (4.0-10.0)
[2020-05-20 18:04] LABS: CALCIUM 9.5 mg/dL (8.5-10.1)
[2020-05-20 18:05] LABS: ALBUMIN 3.8 g/dl (3.4-5.0); BLOOD UREA NITROGEN 13.6 mg/dL (7-18)
[2020-05-20 18:08] LABS: CREATININE 1.2 mg/dL (0.55-1.3)
[2020-05-20 18:10] LABS: BILIRUBIN,TOTAL 0.4 mg/dL (0.2-1); TOT PROT 8.6 g/dl (6.4-8.2)
[2020-05-20] MEDS: THIAMINE HCL 100 MG TABLET (FP) PO SCH (22:11)
[2020-05-20] MEDS: MELATONIN 5 MG TABLETS PO SCH (22:11)
[2020-05-21] MEDS: hydrOXYzine PAMOATE 25 MG CAPSULE (FP) PO SCH (05:14)
[2020-05-21] MEDS: LORazepam 2 MG TABLET PO SCH ×4 (05:14→22:17)
[2020-05-21] MEDS ORDERED: hydrOXYzine PAMOATE 25 MG CAPSULE (FP) PO PRN (09:26)
[2020-05-21] MEDS ORDERED: PRENATAL VITAMINS W/ FOLIC ACID TABLET (FP) PO SCH (10:00)
[2020-05-21] MEDS: PATIENT'S OWN MEDICATION (NON-FORMULARY) (Darunavir/Cob/Emtri/Tenof Alaf 1 EACH Tablet) PO SCH (10:11)
[2020-05-21] MEDS: NICOTINE 14 MG/24 HOURS TOPICAL PATCH TD SCH (10:11)
[2020-05-21] MEDS: METHOCARBAMOL 500 MG TABLET PO PRN (22:16)
[2020-05-21] MEDS: THIAMINE HCL 100 MG TABLET (FP) PO SCH (22:17)
[2020-05-21] MEDS: MELATONIN 5 MG TABLETS PO SCH (22:17)
[2020-05-22] MEDS ORDERED: LORazepam 1 MG TABLET PO SCH (05:00)
[2020-05-22] MEDS: PATIENT'S OWN MEDICATION (NON-FORMULARY) (Darunavir/Cob/Emtri/Tenof Alaf 1 EACH Tablet) PO SCH (07:24)
[2020-05-22 08:00] VITALS: BP 96/59; PULSE 60; TEMP 98.1
[2020-05-23] MEDS ORDERED: LORazepam 0.5 MG TABLET PO PRN
[2020-05-23] MEDS ORDERED: LORazepam 0.5 MG TABLET PO SCH (05:00)
[2020-05-24] MEDS ORDERED: LORazepam 0.5 MG TABLET PO ONE (05:00)
== END 2020-05-22 10:28 | disposition left against medical advice (07) | DRG 770 ==
LOC: YASAS 12:01 → Y6N 14:07
PROVIDERS: ADMIT Allergy & Immunology; ATTEND Allergy & Immunology
PROC: HZ2ZZZZ Detoxification Services for Substance Abuse Treatment (ICD-10-PCS; principal; 2020-05-20)
DX: F10.230 Alcohol dependence with withdrawal, uncomplicated (principal); F14.20 Cocaine dependence, uncomplicated; F12.20 Cannabis dependence, uncomplicated; F17.213 Nicotine dependence, cigarettes, with withdrawal; F19.24 Other psychoactive substance dependence with psychoactive substance-induced mood disorder; F19.282 Other psychoactive substance dependence with psychoactive substance-induced sleep disorder; Z21 Asymptomatic human immunodeficiency virus [HIV] infection status
CPT/HCPCS: 36415; 80053; 85027; 86780; C9803; U0003

== ENCOUNTER 2022-09-02 16:18 | Inpatient (IN) | payer BC ==
[2022-09-02 17:23] VITALS: BMI 19.9
[2022-09-02] MEDS ORDERED: ONDANSETRON *ODT* 4 MG TABLET SL PRN (20:38)
[2022-09-02] MEDS ORDERED: DICYCLOMINE HCL 10 MG CAPSULE PO PRN (20:38)
[2022-09-02] MEDS ORDERED: NICOTINE 10 MG CARTRIDGE (INHALER) IH PRN (20:38)
[2022-09-02] MEDS ORDERED: chlordiazePOXIDE HCL 25 MG CAPSULE PO PRN (20:38)
[2022-09-02] MEDS ORDERED: NALOXONE HCL 0.4 MG/ML VIAL IM PRN (20:38)
[2022-09-02] MEDS ORDERED: BENZONATATE 200 MG CAPSULE PO PRN (20:38)
[2022-09-02] MEDS ORDERED: NALOXONE HCL (KLOXXADO) 8 MG SPRAY NS PRN (20:38)
[2022-09-02] MEDS ORDERED: MAGNESIUM HYDROX 2400MG/30ML ORAL SUSPENSION 30 ML CUP PO PRN (20:38)
[2022-09-02] MEDS ORDERED: BISMUTH SUBSALICYLATE 524 MG/30 ML PO PRN (20:38)
[2022-09-02] MEDS ORDERED: BENZOCAINE/MENTHOL (CHLORASEPTIC ) LOZENGE MM PRN (20:38)
[2022-09-02] MEDS ORDERED: POLYETHYLENE GLYCOL (HEALTHYLAX) 3350 17 GM PACKET PO PRN (20:38)
[2022-09-02] MEDS ORDERED: LOPERAMIDE HCL 2 MG CAPSULE PO PRN (20:38)
[2022-09-02] MEDS ORDERED: guaiFENesin 600 MG TABLET.ER (FP) PO PRN (20:38)
[2022-09-02] MEDS ORDERED: IBUPROFEN 400 MG TABLET (FP) PO PRN (20:38)
[2022-09-02] MEDS ORDERED: MAG HYDROX/AL HYDROX/SIMETH 30 ML UNIT-DOSE CUP PO PRN (20:38)
[2022-09-02] MEDS ORDERED: MELATONIN 5 MG TABLETS PO SCH (22:00)
[2022-09-02] MEDS ORDERED: chlordiazePOXIDE HCL 25 MG CAPSULE ONE (22:55)
[2022-09-02] MEDS ORDERED: MELATONIN 5 MG TABLETS ONE (22:57)
[2022-09-02] MEDS: THIAMINE HCL 100 MG TABLET (FP) PO SCH (22:58)
[2022-09-02] MEDS: IBUPROFEN 600 MG TABLET (FP) PO PRN (22:59)
[2022-09-02] MEDS ORDERED: IBUPROFEN 600 MG TABLET (FP) PO ONE (23:00)
[2022-09-02] MEDS: chlordiazePOXIDE HCL 25 MG CAPSULE PO SCH (23:03)
[2022-09-03] MEDS ORDERED: chlordiazePOXIDE HCL 25 MG CAPSULE ONE (05:38)
[2022-09-03] MEDS: chlordiazePOXIDE HCL 25 MG CAPSULE PO SCH ×4 (05:41→22:45)
[2022-09-03] MEDS: PRENATAL VITAMINS W/ FOLIC ACID TABLET (FP) PO SCH (10:49)
[2022-09-03] MEDS: NICOTINE 14 MG/24 HOURS TOPICAL PATCH TD SCH (10:51)
[2022-09-03] MEDS: ACETAMINOPHEN 325 MG TABLET (FP) PO PRN (17:51)
[2022-09-03] MEDS: THIAMINE HCL 100 MG TABLET (FP) PO SCH (22:46)
[2022-09-03] MEDS: MELATONIN 5 MG TABLETS PO PRN (22:47)
[2022-09-04] MEDS: chlordiazePOXIDE HCL 25 MG CAPSULE PO SCH ×4 (05:27→22:20)
[2022-09-04] MEDS: NICOTINE 14 MG/24 HOURS TOPICAL PATCH TD SCH (10:33)
[2022-09-04] MEDS: PRENATAL VITAMINS W/ FOLIC ACID TABLET (FP) PO SCH (10:33)
[2022-09-04] MEDS: IBUPROFEN 600 MG TABLET (FP) PO PRN (10:37)
[2022-09-04] MEDS ORDERED: BICTEGRAV/EMTRICIT/TENOFOV (BIKTARVY) 50-200-25 MG TABLET PO ONE ×2 (11:49→12:15)
[2022-09-04] MEDS: ACETAMINOPHEN 325 MG TABLET (FP) PO PRN ×2 (17:21→22:23)
[2022-09-04] MEDS: MELATONIN 5 MG TABLETS PO PRN (22:19)
[2022-09-04] MEDS: THIAMINE HCL 100 MG TABLET (FP) PO SCH (22:19)
[2022-09-05] MEDS ORDERED: chlordiazePOXIDE HCL 10 MG CAPSULE PO PRN
[2022-09-05] MEDS: METHOCARBAMOL 500 MG TABLET PO PRN ×2 (02:46→22:29)
[2022-09-05] MEDS: chlordiazePOXIDE HCL 10 MG CAPSULE PO SCH ×4 (05:50→22:29)
[2022-09-05] MEDS: BICTEGRAV/EMTRICIT/TENOFOV (BIKTARVY) 50-200-25 MG TABLET PO SCH (08:23)
[2022-09-05] MEDS: PRENATAL VITAMINS W/ FOLIC ACID TABLET (FP) PO SCH (10:21)
[2022-09-05] MEDS: NICOTINE 14 MG/24 HOURS TOPICAL PATCH TD SCH (10:23)
[2022-09-05] MEDS: MELATONIN 5 MG TABLETS PO PRN (22:29)
[2022-09-05] MEDS: THIAMINE HCL 100 MG TABLET (FP) PO SCH (22:29)
[2022-09-06] MEDS: ACETAMINOPHEN 325 MG TABLET (FP) PO PRN ×2 (00:54→22:36)
[2022-09-06] MEDS: chlordiazePOXIDE HCL 10 MG CAPSULE PO SCH ×2 (05:30→17:07)
[2022-09-06] MEDS: BICTEGRAV/EMTRICIT/TENOFOV (BIKTARVY) 50-200-25 MG TABLET PO SCH (07:34)
[2022-09-06] MEDS: PRENATAL VITAMINS W/ FOLIC ACID TABLET (FP) PO SCH (10:31)
[2022-09-06] MEDS: NICOTINE 14 MG/24 HOURS TOPICAL PATCH TD SCH (10:32)
[2022-09-06] MEDS: METHOCARBAMOL 500 MG TABLET PO PRN ×2 (10:33→22:17)
[2022-09-06] MEDS: MELATONIN 5 MG TABLETS PO PRN (22:15)
[2022-09-06] MEDS: THIAMINE HCL 100 MG TABLET (FP) PO SCH (22:16)
[2022-09-07] MEDS ORDERED: chlordiazePOXIDE HCL 10 MG CAPSULE PO ONE (05:00)
[2022-09-07 06:01] VITALS: RESP 17
[2022-09-07] MEDS: BICTEGRAV/EMTRICIT/TENOFOV (BIKTARVY) 50-200-25 MG TABLET PO SCH (07:42)
[2022-09-07 09:44] VITALS: BP 140/78; PULSE 58; TEMP 97.7
[2022-09-07] MEDS: NICOTINE 14 MG/24 HOURS TOPICAL PATCH TD SCH (10:02)
[2022-09-07] MEDS: PRENATAL VITAMINS W/ FOLIC ACID TABLET (FP) PO SCH (10:02)
== END 2022-09-07 10:39 | disposition home or self-care (01) | DRG 774 ==
LOC: YASAS 16:18 → Y6N 09-03 05:13
PROVIDERS: ADMIT Allergy & Immunology; ATTEND Psychiatry & Neurology Addiction Medicine
PROC: HZ2ZZZZ Detoxification Services for Substance Abuse Treatment (ICD-10-PCS; principal; 2022-09-03)
DX: F10.230 Alcohol dependence with withdrawal, uncomplicated (principal); F14.20 Cocaine dependence, uncomplicated; F16.10 Hallucinogen abuse, uncomplicated; F12.20 Cannabis dependence, uncomplicated; F17.210 Nicotine dependence, cigarettes, uncomplicated; F19.282 Other psychoactive substance dependence with psychoactive substance-induced sleep disorder; F19.20 Other psychoactive substance dependence, uncomplicated; B20 Human immunodeficiency virus [HIV] disease; Z79.899 Other long term (current) drug therapy; Z56.0 Unemployment, unspecified; Z59.00 Homelessness unspecified; Z28.310 Unvaccinated for COVID-19; Z28.9 Immunization not carried out for unspecified reason
CPT/HCPCS: 87811; C9803-CS; U0003; U0005